=== PATIENT | female | born 1980 | race Two or more races ===

== ENCOUNTER → 2017-12-27 | Outpatient (CLI) | payer OTHER | END | disposition home or self-care (01) | LOC: HKI 12:09 | DX: S83.512D Sprain of anterior cruciate ligament of left knee, subsequent encounter (principal); S83.511A Sprain of anterior cruciate ligament of right knee, initial encounter; X58.XXXD Exposure to other specified factors, subsequent encounter; M23.204 Derangement of unspecified medial meniscus due to old tear or injury, left knee; M23.203 Derangement of unspecified medial meniscus due to old tear or injury, right knee | CPT/HCPCS: Z7500 ==

== ENCOUNTER → 2017-12-31 | Outpatient (CLI) | payer OTHER | END | disposition home or self-care (01) | LOC: HKI 10:10 | DX: M25.562 Pain in left knee (principal); M25.561 Pain in right knee | CPT/HCPCS: 20610 ==

== ENCOUNTER → 2018-01-07 | Outpatient (CLI) | payer OTHER | END | disposition home or self-care (01) | LOC: HKI 10:14 | DX: M25.561 Pain in right knee (principal); M23.206 Derangement of unspecified meniscus due to old tear or injury, right knee | CPT/HCPCS: 20610 ==